=== PATIENT | male | born 1985 | race Caucasian/White ===

== ENCOUNTER 2021-05-13 23:27 | Emergency (ER) | payer SELFPAY ==
[~2021-05-13] VITALS: Ht 170.2 cm; Wt 79.4 kg
[2021-05-14 00:25] LABS: EOSINOPHILS % 2.2 % (0.0-5.0); HEMOGLOBIN. 16.4 g/dL (14.0-18.0); MEAN CORPUSCULAR HEMOGLOBIN 30.6 pg (28.0-32.0); PLATELET 162 x1000/uL (130-400)
[2021-05-14 00:34] LABS: CHLORIDE 111 mEq/L (98-107)
[2021-05-14 00:38] LABS: ETHANOL BLOOD < 10 mg/dL
[2021-05-14 00:43] LABS: CREATINE KINASE 103 IU/L (39-308)
[2021-05-14 00:51] LABS: BASOPHILS % 0.3 % (0.0-2.0); HEMATOCRIT. 45.6 % (42.0-52.0); LYMPHOCYTES % 12.5 % (20.0-50.0); MEAN CORPUSCULAR VOLUME 84.9 fL (80.0-94.0); MEAN PLATELET VOLUME 9.7 fl (7.4-10.4); MONOCYTES % 6.9 % (2.0-8.0); NEUTROPHILS % 78.1 % (40.0-76.0); RED BLOOD CELL COUNT 5.36 mill/uL (4.7-6.1); RED CELL DISTRIBUTION WIDTH 14.3 % (11.6-14.6)
[2021-05-14] MEDS ORDERED: RISPERIDONE 0.5MG TABLET PO SCH (09:00)
[2021-05-14 09:30] VITALS: BP 110/70
== END 2021-05-14 15:42 | disposition home or self-care (01) ==
LOC: ER 23:27
DX: F15.10 Other stimulant abuse, uncomplicated (principal); Z78.1 Physical restraint status
CPT/HCPCS: 36415; 80053; 80307; 80320; 80329; 82550; 82962; 85025; 93005; 99285; G0480